=== PATIENT | female | born 2005 | race African-American/Black ===

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

== ENCOUNTER 2025-01-03 12:10 | Emergency (ER) | payer SELFPAY ==
[~2025-01-03] VITALS: Ht 177.8 cm; Wt 79.4 kg
[2025-01-03 12:14] VITALS: O2SAT 100
[2025-01-03 13:07] VITALS: BP 98/51; PULSE 71; RESP 16; TEMP 36.6; O2SAT 100
[2025-01-03 15:08] LABS: INFLUENZA TYPE A Presumptive Negative (Pres. Neg.)
[2025-01-03 15:09] LABS: INFLUENZA TYPE B Presumptive Negative (Pres. Neg.)
== END 2025-01-03 13:56 | disposition home or self-care (01) ==
LOC: ER 12:10
DX: B34.9 Viral infection, unspecified (principal); Z20.822 Contact with and (suspected) exposure to COVID-19; Z98.890 Other specified postprocedural states
CPT/HCPCS: 87426; 87804; 99283